=== PATIENT | male | born 1980 | race Caucasian/White ===

== ENCOUNTER → 2017-01-24 | Outpatient (CLI) | payer OTHER ==
--- NOTE | 2017-01-24 10:59 | PN ---
DATE OF SERVICE: 01/24/2017 A 36-year-old gentleman who has been followed in the Sleep Center for treatment of significant excessive daytime sleepiness. Presently, he is supposed to take Ritalin 5 mg 2 times a day but he feels better, he is taking Ritalin afternoon at 10 mg when ( ), but he feels some sleepiness in the morning. [place] Sleepiness Scale is 12. Other medications insulin, Seroquel, omeprazole, vitamins. During physical exam, the patient in no distress. BP 129/70, HR 68, RR 16. Height 5 foot 9. Weight 170 pounds. BMI 25.1. Temperature 97.6. Oxygen saturation at room air 100%. HEENT: PERRLA, EOMI, Evaluation of the oropharynx showed tongue protrudes midline. NECK: Supple. No JVD, Thyroid is not palpable. LUNGS: Clear to percussion and to auscultation. Good air exchange. No wheezing or rhonchi. HEART: S1, S2 regular. No murmurs, gallops, or rubs. ABDOMEN: Soft and nontender. Bowel sounds are present. No organomegaly appreciated. WEATHERIZATION ADMINISTRATOR: Awake, alert, and oriented x3. Cranial nerves 2 to 7 intact. There is no fasciculation or atrophy noted. No focal deficits observed. IMPRESSION: 1. Excessive daytime sleepiness, improved on treatment with Ritalin. Results of MSLT before showed mean sleep latency 9.2 minutes, which is shorter than normal, but slightly longer than for people with clear narcolepsy. 2. Diabetes. 3. History of bipolar disorder. 4. Acid reflux. PLAN: 1. The patient will continue treatment with Ritalin 5 mg in the morning and 10 mg at the noon time. 2. Sleep hygiene with regular time in bed for at least 8 hours. 3. No driving if feeling any sleepiness. Thank you very much for allowing me to participate in the management of your patient. Sincerely, Abebe Mccoy MD, PhD, FAASM Diplomat of [place] [employer], Sleep Medicine Board by [place] [employer] [employer] Dock Manager [facility] [place]
== END | disposition home or self-care (01) ==
LOC: SLEEP 09:56
PROVIDERS: ATTEND Internal Medicine
DX: G47.10 Hypersomnia, unspecified (principal); E11.9 Type 2 diabetes mellitus without complications; F31.9 Bipolar disorder, unspecified; K21.9 Gastro-esophageal reflux disease without esophagitis; Z79.4 Long term (current) use of insulin; Z79.899 Other long term (current) drug therapy

== ENCOUNTER → 2018-07-23 | Outpatient (CLI) | payer BC ==
--- NOTE | 2018-07-23 18:39 | PN ---
PROGRESS NOTE DATE OF SERVICE: 07/23/2018 A 37-year-old gentleman has been followed in sleep center for treatment of possible narcolepsy. Patient continued to have symptoms of significant excessive daytime sleepiness. Presently, his [place] Sleepiness Scale is 17. He was tried on treatment with Nuvigil, but he does not feel well while he is using Nuvigil. Previously, we treated him with Ritalin 5 mg in the morning and 10 mg at noontime and with that treatment, patient felt well. MEDICATIONS: 1. Seroquel. 2. Lamictal. 3. Klonopin. 4. Insulin. PHYSICAL EXAMINATION: GENERAL Patient in no distress. VITAL SIGNS BP 117/75, HR 80, RR 14, height 5 feet 8-1/2 inches, weight 177.4 pounds, temperature 98.2, oxygen saturation at room air 98%. HEENT PERRLA, EOMI, evaluation of oropharynx showed tongue protrudes midline. Neck Supple, no JVD. Thyroid is not palpable. LUNGS Clear to percussion and to auscultation. Good air exchange. No wheezing or rhonchi. HEART S1, S2 regular. No murmurs, gallops, or rubs. ABDOMEN Soft and nontender. Bowel sounds are present. No organomegaly appreciated. EXTREMITIES No clubbing or cyanosis. OIL FIELD ROUSTABOUT Awake, alert, and oriented X3. Cranial nerves 2 to 7 intact. There is no fasciculation or atrophy. noted. No focal deficits observed. IMPRESSION: 1. Excessive daytime sleepiness, possible narcolepsy. 2. Diabetes mellitus. 3. History of bipolar disorder. 4. Acid reflux. PLAN: 1. Patient will continue treatment with Ritalin 5 mg in the morning and 10 mg early afternoon. 2. Sleep hygiene with regular time in bed for at least 8 hours. 3. No driving if feeling any sleepiness. Patient is aware about the possibility of addiction to medications, including to Ritalin. Thank you very much for allowing me to participate in management of your patient. Sincerely, Abebe Mccoy MD, PhD, FAASM Diplomat of [employer] Locker Room Attendant of [facility] [place] MMODL / IJN: [id number] /
== END ==
LOC: SLEEP 16:10
PROVIDERS: ATTEND Internal Medicine
DX: G47.10 Hypersomnia, unspecified (principal); E11.9 Type 2 diabetes mellitus without complications; K21.9 Gastro-esophageal reflux disease without esophagitis; Z86.59 Personal history of other mental and behavioral disorders; Z79.4 Long term (current) use of insulin; Z79.899 Other long term (current) drug therapy

== ENCOUNTER → 2018-11-12 | Outpatient (CLI) | payer BC ==
[2018-11-12 14:33] VITALS: BP 121/60; PULSE 73; TEMP 98.3; BMI 24.3
--- NOTE | 2018-11-12 15:23 | P.HPBAR ---
Bariatric H&P - History & Physicial H&P Date: 11/12/18 History & Physicial: Visit/CC: panniculectomy consult Patient initial contact: Initial weight: 156.489 kg Initial weight in pounds: 345.00 Height: 5 ft 10 in Initial BMI: 49.5 Last weight: Current weight: 76.793 kg Current weight in pounds: 169.30 Current BMI: 24.3 [place] body weight (based on NIH guidelines): 75.296 kg Excess body weight loss: 98.1% The patient is a 38 year-old M who presents for Bariatric Assessment. HPI: Over 4+ years of chronic panniculitis. His skin got worse after his weight loss surgery. Highest 345 pound. He has maintained over 150+ weight lost. Skin care includes hydrocortisone and antifungal. He is taking tablet. He has troubles with his back on occasion. ABDOMEN: Severe panniculitis. At least 2 pounds of skin removal. PLAN: 1. Recommend panniculectomy. Benefits and risks described. 2. Time of recovery reviewed. 3. On systemic treatment for panniculitis. 4. Blind Aide follow-up in the interim. Past Medical History Past Medical History: Diabetes Mellitus Additional Past Medical History / Comment(s): Type 1 Diabetes dx at age 10,hx diabetic seizure with hypoglycemia-last episode approx 2010,sleep study done May 2016=Narcolepsy History of Any Multi-Drug Resistant Organisms: None Reported Past Surgical History: Bariatric Surgery, Hernia Repair Additional Past Surgical History / Comment(s): gastric sleeve July 2015; EGD, wart removed from belly button, Hiatal hernia repaired 2015 Past Anesthesia/Blood Transfusion Reactions: No Reported Reaction Past Psychological History: Anxiety, Depression Smoking Status: Never smoker Past Alcohol Use History: None Reported Past Drug Use History: None Reported - Past Family History Mother Family Medical History: Cancer Father Family Medical History: Cancer Surgical - Exam Vital Signs Temp Pulse BP 98.3 F 73 121/60 11/12/18 14:29 11/12/18 14:29 11/12/18 14:29 Bariatric Checklist Checklist: Plan: Checklist: EGD: 1. Hiatal hernia: 2. H. Pylori: HgbA1c: Vitamin D: Smoking: Never smoker Primary care physician referral: Dr. Golden Green Psychiatry clearance: Cardiology clearance: Sleep study: Diet journal: VTE risk score: VTE risk level: Rehab needs at discharge:
== END | disposition home or self-care (01) ==
LOC: BARWHC3 13:44
PROVIDERS: ATTEND Surgery Plastic and Reconstructive Surgery
DX: Z48.815 Encounter for surgical aftercare following surgery on the digestive system (principal); Z98.84 Bariatric surgery status
CPT/HCPCS: 99211

== ENCOUNTER → 2019-02-26 | Outpatient (CLI) | payer BC ==
--- NOTE | 2019-02-26 12:25 | SFUN ---
SLEEP CENTER FOLLOW UP NOTE DATE OF SERVICE: 02/26/2019 A 38-year-old gentleman who has been followed in the Sleep Center for significant excessive daytime sleepiness, possible narcolepsy. Presently, patient is on treatment with Ritalin 5 mg in the morning and 10 mg early afternoon. [place] Sleepiness Scale today significantly increased to 17. With this regimen, patient still feels sleepy during the day, has to take energetic drinks today. Today, he did not take his medication, but took energetic drinks. MEDICATIONS: Seroquel, Lamictal, Klonopin, insulin, Ritalin. PHYSICAL EXAM: Patient in no distress, BP 152/73, HR 74, RR 16, height 5 foot 9-1/2 inches, weight 163 pounds. Body mass index 23.7, temperature 98.1, oxygen saturation at room air 100%. IMPRESSION: 1. Excessive daytime sleepiness, possible narcolepsy. 2. Diabetes mellitus. 3. History of bipolar disorder. 4. Acid reflux. 5. Status post bariatric surgery and gastric sleeve 3 years ago. PLAN: 1. Patient will continue to take Ritalin, dose will be increased to 10 mg in the morning and to 15 mg early afternoon. 2. Sleep hygiene with regular time of bed for 8 hours. 3. Precaution related to driving. No driving if feeling sleepiness. Thank you very much for allowing me to participate in the management of you patient. Sincerely, Abebe Mccoy MD, PhD, FAASM Diplomat of [place] [employer] Range Feeder [facility] [place] MMODL / IJN: [id number] /
== END | disposition home or self-care (01) ==
LOC: SLEEP 10:51
PROVIDERS: ATTEND Internal Medicine
DX: G47.10 Hypersomnia, unspecified (principal); E11.9 Type 2 diabetes mellitus without complications; K21.9 Gastro-esophageal reflux disease without esophagitis; Z86.59 Personal history of other mental and behavioral disorders; Z98.84 Bariatric surgery status; Z79.4 Long term (current) use of insulin; Z79.899 Other long term (current) drug therapy